=== PATIENT | male | born 1955 | race Caucasian/White ===

== ENCOUNTER → 2020-12-13 | Day surgery (SDC) | payer MEDICARE, OTHER ==
[~2020-12-13] VITALS: Ht 172.7 cm; Wt 68.0 kg
[~2020-12-13] MED LIST: ALLEGRA ALLERG180 MG PO; ASPIRIN EC81 MG PO; BACLOFEN 10MG T10 MG PO; BENTYL10 MG/1 ML PO; BREO ELLIPTA 11 EACH PO; FINASTERIDE5 MG PO; FLOMAX0.4 MG PO; FLONASE ALLER15.8 ML; HYDROCODON-ACE1 EAC6 PO; HYDROCODONE-APA1 TAB PO; IBU400 MG PO; KLONOPIN0.5 MG PO; OMEGA 3 1,0001 EACH PO; PAXIL20 MG PO; PHENERGAN25 M1 PO; PRAVACHOL80 MG PO; PREDNISONE 20MG20 MG PO; PRILOSEC20 MG PO; PROAIR HFA PO; RELISTOR150 MG PO; SPIRIVA18 MCG INH; TOPROL XL 25MG25 MG PO; VENTOLIN HFA IN18 GM INH; VITAMIN D35000 UNIT PO; ZANAFLEX4 M1 PO
[2020-12-13 11:51] LABS: BILIRUBIN - TOTAL 0.3 mg/dL (0.2-1.0); BUN/CREAT RATIO (CALC) 16.5 RATIO; CREATININE 0.79 mg/dL (0.67-1.17); GLOBULIN (CALCULATION) 4.6 g/dL; TOTAL PROTEIN 7.6 g/dL (6.4-8.2)
== END | disposition home or self-care (01) ==
LOC: FAS 10:16
PROVIDERS: Surgery
DX: K29.50 Unspecified chronic gastritis without bleeding (principal); K21.9 Gastro-esophageal reflux disease without esophagitis; K31.9 Disease of stomach and duodenum, unspecified; B19.20 Unspecified viral hepatitis C without hepatic coma; I10 Essential (primary) hypertension; J44.9 Chronic obstructive pulmonary disease, unspecified; F41.9 Anxiety disorder, unspecified; E78.00 Pure hypercholesterolemia, unspecified; Z80.3 Family history of malignant neoplasm of breast; Z87.891 Personal history of nicotine dependence; Z79.82 Long term (current) use of aspirin; Z79.899 Other long term (current) drug therapy
CPT/HCPCS: 36415; 80053; 82150; 83690; J2250; J7120

== ENCOUNTER → 2020-12-28 | Day surgery (SDC) | payer MEDICARE, OTHER ==
[~2020-12-28] VITALS: Ht 172.7 cm; Wt 68.0 kg
[~2020-12-28] MED LIST changes: +ASPIRIN325 MG PO; +PERCOCET 5-3251 EACH PO
[2020-12-28 12:06] LABS: HCT 40.2 % (42.0-52.0); HGB 13.7 g/dl (13.2-18.0); MCH 31.5 pg (25.0-31.0); MCHC 34.1 g/dL (32.0-36.0); MCV 92.4 fL (78.0-100.0); MPV 8.7 fL (6.0-9.5); RBC 4.35 M/uL (4.70-6.00); RDW 12.8 % (11.5-14.0); WBC 10.7 K/uL (4.0-10.5)
[2020-12-28 12:12] LABS: ALBUMIN 3.4 g/dL (3.4-5.0); BILIRUBIN - TOTAL 0.4 mg/dL (0.2-1.0); BUN/CREAT RATIO (CALC) 19.3 RATIO; CREATININE 0.83 mg/dL (0.67-1.17); GLOBULIN (CALCULATION) 4.6 g/dL; POTASSIUM 4.1 mmol/L (3.5-5.1)
== END | disposition home or self-care (01) ==
LOC: FAS 07:00
PROVIDERS: Orthopaedic Surgery
DX: S83.272A Complex tear of lateral meniscus, current injury, left knee, initial encounter (principal); S83.242A Other tear of medial meniscus, current injury, left knee, initial encounter; M17.12 Unilateral primary osteoarthritis, left knee; M67.52 Plica syndrome, left knee; E78.00 Pure hypercholesterolemia, unspecified; J44.9 Chronic obstructive pulmonary disease, unspecified; X58.XXXA Exposure to other specified factors, initial encounter; Z79.82 Long term (current) use of aspirin; Z79.899 Other long term (current) drug therapy
CPT/HCPCS: 36415; 71045; 80053; 93005; J1100; J1170; J1885; J2001; J2250; J2405; J2704; J3010; J7120

== ENCOUNTER 2021-07-04 14:56 | Emergency (ER) | payer MEDICARE, OTHER ==
[2021-07-04 16:44] LABS: BASOPHIL 0.6 % (0-2); BILIRUBIN NEGATIVE (NEGATIVE); BLOOD NEGATIVE Ery/uL (NEGATIVE); CLARITY CLEAR (CLEAR); COLOR YELLOW (YELLOW); EOSINOPHIL 3.8 % (0-7); GLUCOSE (U) NORMAL (NORMAL); HCT 42.8 % (42.0-52.0); HGB 14.4 g/dl (13.2-18.0); LEUKOCYTES 1+ Leu/uL (NEGATIVE); LYMPHOCYTE 43.9 % (15-48); MCH 31.4 pg (25.0-31.0); MCHC 33.6 g/dL (32.0-36.0); MCV 93.2 fL (78.0-100.0); MONOCYTE 8.6 % (0-12); MPV 8.7 fL (6.0-9.5); NEUTROPHIL 42.7 % (41-80); NITRITE NEGATIVE (NEGATIVE); NRBC 0; PLT 300 K/uL (150-400); PROTEIN NEGATIVE (NEGATIVE); RBC 4.59 M/uL (4.70-6.00); SPECIFIC GRAVITY <=1.005 (1.001-1.030); UROBILINOGEN 0.2 mg/dL (0.2-1.0); WBC 9.3 K/uL (4.0-10.5)
[2021-07-04 16:57] LABS: URINARY WBC RARE
[2021-07-04 17:02] LABS: ALBUMIN 3.4 g/dL (3.4-5.0); BILIRUBIN - TOTAL 0.3 mg/dL (0.2-1.0); BUN/CREAT RATIO (CALC) 21.2 RATIO; CREATININE 0.85 mg/dL (0.67-1.17); GLOBULIN (CALCULATION) 4.9 g/dL; POTASSIUM 4.2 mmol/L (3.5-5.1); TOTAL PROTEIN 8.3 g/dL (6.4-8.2)
[2021-07-04] MEDS ORDERED: METRONIDAZOLE500 MG PO (18:41)
[2021-07-04] MEDS ORDERED: CIPRO500 MG PO (18:41)
[2021-07-04] MEDS ORDERED: ULTRAM50 MG PO (18:46)
== END 2021-07-04 19:15 | disposition home or self-care (01) ==
LOC: FER 14:56
PROVIDERS: Nurse Practitioner Family
DX: R10.9 Unspecified abdominal pain (principal); Z28.311 Partially vaccinated for COVID-19
CPT/HCPCS: 36415; 80053; 81001; 85025; J1885; J2405; J7030; Q9967